=== PATIENT | male | born 1975 | race Caucasian/White ===

== ENCOUNTER → 2020-07-14 | Outpatient (CLI) | payer SELFPAY ==
--- NOTE | 2020-07-14 18:19 | RAD ---
Examination: XR LUMBAR SPINE 2-3V History: Reason: LUMBAR SPINE PAIN. / Spl. Instructions: / History: Comparison/Correlation: None Findings: Frontal and lateral views of the lumbar spine were obtained. There is levo convexity of the lumbar spine is present. Disc spaces are adequate. Diffuse relatively increased density of the bony structures noted. L5 vertebral body height loss is suggested. Bilateral sacroiliitis greater on the l eft noted. Lower lumbar spine facet joint degenerative changes from L4 to S1 evident. Impression: No acute process. Diffuse increase bony density and bilateral sacroiliitis. Correlate for underlying secondary hyperpar athyroidism. L5 vertebral body height loss suggested emphysematous chronic . Electronically signed by: Peter Ball MD (07/14/2020 6:17 PM) [id number]
== END ==
LOC: RAD 11:27
PROVIDERS: ATTEND Orthopaedic Surgery
DX: N25.81 Secondary hyperparathyroidism of renal origin (principal); M46.1 Sacroiliitis, not elsewhere classified
CPT/HCPCS: 72100

== ENCOUNTER → 2021-02-21 | Outpatient (CLI) | payer OTHER ==
--- NOTE | 2021-02-21 13:21 | RAD ---
EXAM: LEFT ANKLE 2 VIEWS. HISTORY: Left ankle pain. COMPARISON: None. FINDINGS: Two views of the left ankle are obtained. An osseous excrescence along the lateral aspect of the distal tibial metaphysis spans approximately 4 .0 x 1.9 cm and suggests an osteochondroma. There is a moderate to large posterior calcaneal spur with fragmented ossicles in the region of the A chilles tendon insertion. There is no clear acute retrocalcaneal erosion, but a chronic erosion canno t be excluded. There is a small plantar calcaneal spur. No acute fractures are appreciated at the ankle. The joint spaces and alignment of the mortise are ma intained. Soft tissue calcifications throughout the lower leg suggest chronic venous stasis. Atherosc lerotic calcifications are also noted. IMPRESSION: 1. Bettye deformity as detailed above. 2. 4.0 x 1.9 cm suspected osteochondroma along the distal tibia laterally. Correlate for this as a ca use of mass effect. MRI could further evaluate if there is associated pain. Electronically signed by: Tea Quigley MD (02/21/2021 1:18 PM) [id number]
== END ==
LOC: RAD 09:40
PROVIDERS: ATTEND Surgery
DX: Z02.71 Encounter for disability determination (principal); M77.32 Calcaneal spur, left foot; M21.6X2 Other acquired deformities of left foot; I70.90 Unspecified atherosclerosis
CPT/HCPCS: 73600